=== PATIENT | female | born 1965 | race Caucasian/White ===

== ENCOUNTER 2020-10-19 09:24 | Emergency (ER) | payer OTHER ==
[2020-10-19 10:31] LABS: HEMOGLOBIN 13.7 gm/dl (12.3-15.3); RED BLOOD COUNT 4.44 M/UL (4.00-5.10); WHITE BLOOD COUNT 6.8 K/UL (4.5-11.0)
[2020-10-19 11:02] LABS: BUN/CREATININE RATIO 33 (0-10)
[2020-10-19] MEDS ORDERED: PROAIR DIGIHAL90 MCG INH (13:54)
[2020-10-19] MEDS ORDERED: IBUPROFEN800 MG PO (13:54)
[2020-10-19] MEDS ORDERED: NASONEX17 GM (13:54)
[2020-10-19] MEDS ORDERED: FLOVENT DISKU100 MCG INH (13:54)
== END 2020-10-19 14:20 | disposition home or self-care (01) ==
LOC: ER1 09:24
PROVIDERS: Emergency Medicine
DX: U07.1 COVID-19 (principal); J12.82 Pneumonia due to coronavirus disease 2019; I10 Essential (primary) hypertension; E03.9 Hypothyroidism, unspecified
CPT/HCPCS: 80053; 82550; 82553; 83880; 84484; 85025; 85610; 85730; 93005; 99284; Q9967

== ENCOUNTER → 2021-02-08 | Outpatient (CLI) | payer OTHER ==
[~2021-02-08] MED LIST: FLOVENT DISKU100 MCG INH; IBUPROFEN800 MG PO; NASONEX17 GM; PROAIR DIGIHAL90 MCG INH
[2021-02-08 11:23] LABS: HEMOGLOBIN 13.1 gm/dl (12.3-15.3); RED BLOOD COUNT 4.37 M/UL (4.00-5.10); WHITE BLOOD COUNT 4.3 K/UL (4.5-11.0)
== END ==
LOC: LAB 10:45
PROVIDERS: Internal Medicine
DX: E05.00 Thyrotoxicosis with diffuse goiter without thyrotoxic crisis or storm (principal)
CPT/HCPCS: 36415; 80076; 83520; 84439; 84443; 84481; 85025